=== PATIENT | male | born 1960 | race Caucasian/White ===

== ENCOUNTER 2016-10-02 10:59 | Day surgery (SDC) | payer OTHER ==
[~2016-10-02] VITALS: Ht 195.6 cm; Wt 136.2 kg
[~2016-10-02 10:59] MED LIST: BACLOFEN10 MG PO; DAILY MULTIPLE1 EACH PO; DEXILANT60 MG PO; GABAPENTIN600 MG PO; LEXAPRO20 MG PO; LISINOPRIL20 MG PO; LO-DOSE ASPIRIN81 M2 PO; LORAZEPAM0.5 MG PO; METFORMIN HCL500 M1 PO; MS CONTIN,ORAMO15 M1 PO; OXYCODONE HCL5 M1 PO; PROAIR HFA8.5 GM IH; PROPRANOLOL HCL20 MG PO; PROZAC40 MG PO; SIMVASTATIN20 MG PO; SPIRIVA1 INHALATI IH; SYMBICORT60 INHALAT IH; VITAMIN B-12250 MCG PO; VITAMIN B-6250 MG PO; VITAMIN D-32000 UNI2 PO
[2016-10-02] MEDS ORDERED: STELARA90 MG/1 ML SC (11:47)
[2016-10-02 11:49] VITALS: BP 138/74
[2016-10-02 12:19] LABS: POINT-OF-CARE METER ID UU14174212
[2016-10-02 14:04] LABS: POINT-OF-CARE METER ID UU13113675; POINT-OF-CARE USER ID 515036437
[2016-10-02 16:00] VITALS: BP 155/77
[2016-10-02 16:30] VITALS: BP 151/89
== END 2016-10-02 16:55 | disposition home or self-care (01) ==
LOC: SDC 10:59
PROVIDERS: Orthopaedic Surgery Hand Surgery
PROC: 0LN80ZZ Release Left Hand Tendon, Open Approach (ICD-10-PCS; principal; 2016-10-02)
DX: M65.332 Trigger finger, left middle finger (principal); E11.9 Type 2 diabetes mellitus without complications; E78.5 Hyperlipidemia, unspecified; J44.9 Chronic obstructive pulmonary disease, unspecified; I10 Essential (primary) hypertension; L40.50 Arthropathic psoriasis, unspecified; F17.200 Nicotine dependence, unspecified, uncomplicated; Z86.711 Personal history of pulmonary embolism; Z81.1 Family history of alcohol abuse and dependence; Z83.3 Family history of diabetes mellitus; Z82.49 Family history of ischemic heart disease and other diseases of the circulatory system; Z80.1 Family history of malignant neoplasm of trachea, bronchus and lung
CPT/HCPCS: 82948; J1170; J1885; J2250; J3010; S0020

== ENCOUNTER 2017-03-17 10:32 | Inpatient (IN) | payer OTHER ==
[~2017-03-17] VITALS: Ht 195.6 cm; Wt 133.0 kg
[~2017-03-17 10:32] MED LIST changes: +DICYCLOMINE HCL20 MG PO; +STELARA90 MG/1 ML SC
[2017-03-17 11:05] LABS: POINT-OF-CARE METER ID UU14174212
[2017-03-17 11:31] VITALS: BP 131/70
[2017-03-17 19:17] LABS: POINT-OF-CARE METER ID UU13113675
[2017-03-17 20:38] LABS: HEMATOCRIT 39.8 % (38.0-50.0); MCH 29.3 PG (29.0-34.0); MCHC 31.9 G/DL (30.0-36.0); MCV 91.9 FL (86-99); MEAN PLAT.VOLUME 11.5 uM^3 (9.0-12.4); PLATELET COUNT 246 K/uL (156-360); RBC DIS.WIDTH-CV 14.1 % (11.8-14.6); RBC DIS.WIDTH-SD 47.9 % (39-53); RED BLOOD COUNT 4.33 M/uL (4.00-5.50); WHITE BLOOD COUNT 16.7 K/uL (4.1-10.2)
[2017-03-17 21:03] VITALS: BP 190/92
[2017-03-17 22:00] VITALS: BP 178/87
[2017-03-18] VITALS (7 sets, daily range): BP systolic 109–146; BP diastolic 58–84
[2017-03-18 06:10] LABS: HEMATOCRIT 37.4 % (38.0-50.0); MCHC 32.6 G/DL (30.0-36.0); MCV 91.9 FL (86-99); MEAN PLAT.VOLUME 11.8 uM^3 (9.0-12.4); PLATELET COUNT 266 K/uL (156-360); RBC DIS.WIDTH-CV 14.3 % (11.8-14.6); RBC DIS.WIDTH-SD 48.6 % (39-53); RED BLOOD COUNT 4.07 M/uL (4.00-5.50); WHITE BLOOD COUNT 15.6 K/uL (4.1-10.2)
[2017-03-18 06:34] LABS: ANION GAP 6 MEQ/L (2-14); CHLORIDE 107 MEQ/L (99-109); GFR ESTIMATE (CALCULATED) > 59 mL/min/; GLUCOSE 126 mg/dL (70-99); POTASSIUM 5.2 MEQ/L (3.7-5.4); SAMPLE HEMOLYSIS CHECK 0; SAMPLE ICTERIC CHECK 0; SAMPLE LIPEMIA CHECK 0; SODIUM 139 MEQ/L (136-147); UREA NITROGEN (BUN) 10 mg/dL (9-23)
[2017-03-19 03:05] VITALS: BP 181/106
[2017-03-19 05:50] LABS: HEMATOCRIT 36.1 % (38.0-50.0); MCH 30.3 PG (29.0-34.0); MCHC 32.7 G/DL (30.0-36.0); MCV 92.6 FL (86-99); MEAN PLAT.VOLUME 11.9 uM^3 (9.0-12.4); PLATELET COUNT 217 K/uL (156-360); RBC DIS.WIDTH-CV 14.2 % (11.8-14.6); RBC DIS.WIDTH-SD 47.6 % (39-53); WHITE BLOOD COUNT 13.4 K/uL (4.1-10.2)
[2017-03-19 06:13] LABS: ALKALINE PHOSPHATASE 40 IU/L (3-129); ANION GAP 6 MEQ/L (2-14); CHLORIDE 103 MEQ/L (99-109); GFR ESTIMATE (CALCULATED) > 59 mL/min/; GLUCOSE 136 mg/dL (70-99); POTASSIUM 4.7 MEQ/L (3.7-5.4); SAMPLE HEMOLYSIS CHECK 0; SAMPLE ICTERIC CHECK 0; SAMPLE LIPEMIA CHECK 0; SODIUM 139 MEQ/L (136-147); UREA NITROGEN (BUN) 8 mg/dL (9-23)
[2017-03-19 07:15] VITALS: BP 146/87
[2017-03-19 11:20] VITALS: BP 174/86
[2017-03-19 15:05] VITALS: BP 143/80
[2017-03-19 19:56] VITALS: BP 100/60
[2017-03-20 00:40] VITALS: BP 130/72
[2017-03-20 07:10] LABS: MCH 29.2 PG (29.0-34.0); MCV 91.4 FL (86-99); MEAN PLAT.VOLUME 11.9 uM^3 (9.0-12.4); PLATELET COUNT 222 K/uL (156-360); RBC DIS.WIDTH-CV 14.1 % (11.8-14.6); RBC DIS.WIDTH-SD 47.1 % (39-53); RED BLOOD COUNT 3.83 M/uL (4.00-5.50); WHITE BLOOD COUNT 11.4 K/uL (4.1-10.2)
[2017-03-20 07:20] VITALS: BP 157/79
[2017-03-20 07:41] LABS: ALKALINE PHOSPHATASE 45 IU/L (3-129); ANION GAP 10 MEQ/L (2-14); CHLORIDE 102 MEQ/L (99-109); DIRECT BILIRUBIN 0.5 mg/dL (0.0-0.3); GFR ESTIMATE (CALCULATED) > 59 mL/min/; GLUCOSE 120 mg/dL (70-99); SAMPLE HEMOLYSIS CHECK 0; SAMPLE ICTERIC CHECK 0; SAMPLE LIPEMIA CHECK 0; SODIUM 140 MEQ/L (136-147); TOTAL BILIRUBIN 1.3 MG/DL (0.0-1.0); UREA NITROGEN (BUN) 7 mg/dL (9-23)
[2017-03-20] MEDS ORDERED: PERCOCET 5/31 TABLET PO (09:41)
[2017-03-20] MEDS ORDERED: COLACE100 MG PO (09:41)
== END 2017-03-20 11:20 | disposition home or self-care (01) | DRG 415 ==
LOC: SDC 10:32 → ENRESERV 20:07 → 2SOUTH 20:09 → 2EAST 20:09 → ENRESERV 20:11 → 2EAST 20:38
PROVIDERS: Surgery
DX: K80.10 Calculus of gallbladder with chronic cholecystitis without obstruction (principal); F33.9 Major depressive disorder, recurrent, unspecified; Z53.31 Laparoscopic surgical procedure converted to open procedure; K66.0 Peritoneal adhesions (postprocedural) (postinfection); G47.30 Sleep apnea, unspecified; E11.9 Type 2 diabetes mellitus without complications; D64.9 Anemia, unspecified; E78.5 Hyperlipidemia, unspecified; L40.50 Arthropathic psoriasis, unspecified; F41.9 Anxiety disorder, unspecified; G89.29 Other chronic pain; I10 Essential (primary) hypertension; J44.9 Chronic obstructive pulmonary disease, unspecified; K21.0 Gastro-esophageal reflux disease with esophagitis; K57.30 Diverticulosis of large intestine without perforation or abscess without bleeding; K80.20 Calculus of gallbladder without cholecystitis without obstruction; M21.70 Unequal limb length (acquired), unspecified site; M51.36 Other intervertebral disc degeneration, lumbar region; R33.9 Retention of urine, unspecified; F17.210 Nicotine dependence, cigarettes, uncomplicated; D72.829 Elevated white blood cell count, unspecified; F52.21 Male erectile disorder; E34.9 Endocrine disorder, unspecified; M06.9 Rheumatoid arthritis, unspecified; M43.16 Spondylolisthesis, lumbar region; K76.0 Fatty (change of) liver, not elsewhere classified; Z79.82 Long term (current) use of aspirin; Z80.1 Family history of malignant neoplasm of trachea, bronchus and lung; Z81.1 Family history of alcohol abuse and dependence; Z82.49 Family history of ischemic heart disease and other diseases of the circulatory system; Z83.3 Family history of diabetes mellitus; Z86.010 Personal history of colon polyps; Z86.711 Personal history of pulmonary embolism; Z79.84 Long term (current) use of oral hypoglycemic drugs
CPT/HCPCS: 80048; 80053; 82248; 82948; 85027; 88304; 94640; 94640 76; 94799; 99202; J0131; J0330; J0690; J1100; J1170; J1644; J2250; J2270; J2405; J2710; J3010; J7120